=== PATIENT | male | born 1960 | race Hispanic/Latino ===

== ENCOUNTER → 2018-01-12 | Day surgery (SDC) | payer MEDICARE ==
[~2018-01-12] MED LIST: CHLORDIAZEPOXID25 MG PO; FENTANYL CITRATE/PF 100MCG/2 ML INJ ONE; IBUPROFEN200 MG PO; LIDOCAINE HCL 2% LOCAL INJ 5 ML SDV VIAL INJ ONE; MIDAZOLAM HCL 2 MG/2 ML VIAL ONE; PROPOFOL IV EMULSION 10 MG/ML 50 ML VIAL ONE
--- OUTSIDE RECORDS SUMMARY | 2018-01-12 07:24 | XMS REPORT ---
Author Author [facility] Address Unknown Phone Unavailable Care Team Providers Care Program Services Assistant Name Role Phone Unavailable Unavailable Payers Payer Name Policy Type Policy Number Effective Date Expiration Date Problems This patient has no known problems. Allergies, Adverse Reactions, Alerts Allergy Name Allergy Type Status Severity Reaction(s) Onset Date Inactive Date Treating Clinician Comments No Known Allergies DA Active U 2015-12-03 00:00:00 Medications This patient has no known medications.
[2018-01-12 11:30] VITALS: BP 124/89
--- NOTE | 2018-01-12 13:59 | Operative Report ---
DATE OF PROCEDURE: January 12, 2018 REFERRING PHYSICIAN: Dr. Jaquan Goode PROCEDURE PERFORMED: Esophagogastroduodenoscopy with biopsies. INDICATIONS FOR EGD: Upper abdominal pain, nausea, hoarseness. MEDICATION: Patient was done under MAC. Please see anesthesiologist's note. PROCEDURE: With the patient in the left lateral decubitus position, the flexible fiberoptic Olympus gastroscope was introduced into the oropharynx without any difficulty. A raised nodular area was noted to involve the left arytenoid as well as the left vocal cord. The scope was then advanced with ease into the esophagus, and the mucosa overlying the distal esophagus revealed some patchy areas of erythema. Minute tongues of velvety red mucosa were noted to extend proximally from the GE junction. Biopsies were obtained to rule out Mora's. The scope was then advanced with ease into the stomach, traversing a small sliding hiatal hernia. The mucosa overlying the antrum and the body revealed some diffuse erythema and moderate edema, and biopsies were obtained and sent to stain for H. pylori. Pylorus appeared to be of normal contour and shape. It was intubated with ease, and the scope was advanced all the way to the 2nd portion of the duodenum. There were some scattered minute ulcerations noted in the 2nd portion, and biopsies were obtained. The scope was then withdrawn back into the stomach and retroflexed. Mucosa overlying the fundus and the cardia appeared to be within normal limits. The scope was then straightened out. It was subsequently withdrawn. Patient tolerated the procedure well. IMPRESSION 1. Raised nodular area involving the left vocal cord. 2. Distal esophagitis, mild. 3. Rule out Mora's esophagus. 4. Small sliding hiatal hernia. 5. Gastritis, biopsied. Biopsies sent to stain for H. pylori. 6. Multiple duodenal ulcers, minute, involving the 2nd portion of the duodenum. Biopsies obtained. PLAN: Follow up histology. Initiate Protonix 40 mg 1 p.o. q.a.m. a.c. Findings were discussed with Dr. Goode, the patient's attending. Job#: [id number] cc:Carmella ALEJO MD
== END | disposition home or self-care (01) ==
LOC: OR 07:22
PROVIDERS: ATTEND Internal Medicine Gastroenterology
DX: Z12.11 Encounter for screening for malignant neoplasm of colon (principal); R11.0 Nausea; J44.9 Chronic obstructive pulmonary disease, unspecified; R56.9 Unspecified convulsions; G89.29 Other chronic pain; R10.84 Generalized abdominal pain; R63.5 Abnormal weight gain; R49.9 Unspecified voice and resonance disorder; F10.20 Alcohol dependence, uncomplicated; K20.9 Esophagitis, unspecified; K44.9 Diaphragmatic hernia without obstruction or gangrene; K29.70 Gastritis, unspecified, without bleeding; K26.9 Duodenal ulcer, unspecified as acute or chronic, without hemorrhage or perforation; J38.2 Nodules of vocal cords; K21.0 Gastro-esophageal reflux disease with esophagitis
CPT/HCPCS: 43239; 88305; 88312; 93005; J2001; J2250